=== PATIENT | male | born 1975 | race Two or more races ===

== ENCOUNTER 2020-03-18 17:33 | Emergency (ER) | payer SELFPAY ==
[~2020-03-18] VITALS: Ht 167.6 cm; Wt 69.4 kg
[2020-03-18] MEDS ORDERED: TETANUS-DIPTH-ACEL PERTUSSIS 0.5ML SYR Tdap IM ONE (23:00)
[2020-03-18] MEDS ORDERED: HYDROcodone-ACET 7.5/325MG TAB PO ONE (23:00)
[2020-03-18] MEDS ORDERED: cefTRIAXone 1GM/50ML D5W 50 ML IV ONE (23:00)
[2020-03-19] MEDS ORDERED: HYDROcodone-ACET 5/325MG TAB PO ONE (04:45)
[2020-03-19] MEDS ORDERED: cloNIDine HCL 0.1 MG TAB PO ONE (04:45)
[2020-03-19 05:13] VITALS: BP 138/65
== END 2020-03-19 05:14 | disposition left against medical advice (07) ==
LOC: ER 17:35
DX: M79.641 Pain in right hand (principal)
CPT/HCPCS: 73130; 90471; 90715; 96365; 96366; 99284; J0696